=== PATIENT | female | born 1975 | race Caucasian/White ===

== ENCOUNTER 2024-09-06 07:18 | Emergency (ER) | payer OTHER, SELFPAY ==
[2024-09-06] VITALS (20 sets, daily range): BP systolic 97–116; BP diastolic 62–98; PULSE 54–71; RESP 9–20; TEMP 36.4; O2SAT 90–100; BMI 23.8
--- NOTE | 2024-09-06 07:45 | EKG12_ITS ---
Test Reason : CP/PALP Blood Pressure : */* mmHG Vent. Rate : 62 BPM Atrial Rate : 62 BPM P-R Int : 120 ms QRS Dur : 92 ms QT Int : 386 ms P-R-T Axes : -3 4 32 degrees QTcB Int : 391 ms Normal sinus rhythm Normal ECG Confirmed by ALCIDES FRANCIS, MIGUEL ([id number]), non linear editor CAMERON RUSSELL ([id number]) on 09/08/2024 6:18:31 AM Referred By: Confirmed By: MIGUEL MCGRATH MD
--- NOTE | 2024-09-06 07:57 | EX.ED.DYSGE1 ---
HPI History of Present Illness Chief Complaint: Palpitations Detail of Chief Complaint: Rapid heart rate, chest discomfort and lightheadedness Informant: patient Onset/Context/Timing Onset: Today and Hours Context: Sudden Onset Timing: Intermittent (Duration 10 minutes) Quality: Heart rate 208 maximum Location: Cardiovascular Worsened by: Unknown Relieved by: Spontaneous Associated Symptoms Associated Symptoms: Chest discomfort, lightheadedness and palpitations Narrative Narrative: Patient is a 48-year-old woman. She has history of depression, insomnia and hormonal imbalance who presents because of rapid heart rate. Maximum rate was 208. This was detected by her Apple Watch. She denied shortness of breath, diaphoresis, nausea. She states she had similar episode January 2024. She has recently seen Dr. Gonzalez who is a food safety manager through the [facility] for bradycardia. She had blood work on August 26, 2024 which included a free T3, free T4 and TSH. TSH was at the lower end of normal. T3 and T4 were both normal. She states her thyroid is assessed because her mother has history of Shara's disease and Graves' disease. She did have a comprehensive metabolic panel which was normal. CBC which was normal. Presently she has no symptoms. Patient does have a history of GERD. She is on omeprazole. She states if she takes her medication at night and then lies down she has discomfort in her chest. Patient drinks a 10 ounce cup of coffee in the morning. She may have 1 Diet Coke throughout the day. Prior similar symptoms: Yes (January 2024) Recent Illness/Hospitalization: No PFSH PFSH Home Medications ?Medication ?Instructions ?Recorded ?Last Taken ?Type Cetirizine Hcl [Zyrtec] 10 mg PO DAILY 08/11/13 Unknown History amitriptyline 25 mg tablet 25 mg PO QHS 08/11/13 Unknown History fluoxetine 20 mg capsule 40 mg PO DAILY 08/11/13 Unknown History multivitamin with folic acid 400 1 tab PO DAILY 08/11/13 Unknown History mcg tablet (Thera) ezetimibe 10 mg tablet 20 mg PO DAILY 07/12/15 Unknown History oxycodone-acetaminophen 5 mg-325 1 - 2 tab PO Q4H PRN PRN Pain #20 07/12/15 Unknown Rx mg tablet tabs prednisone 20 mg tablet 20 mg PO BIDCM ##10 07/12/15 Unknown Rx metoprolol tartrate 25 mg tablet 25 mg PO UD #30 tabs 09/06/24 Unknown Rx Allergy/AdvReac Type Severity Reaction Status Date / Time aspirin (From Fiorinal) Allergy Rash Verified 11/23/16 09:25 butalbital (From Fiorinal) Allergy Rash Verified 11/23/16 09:25 caffeine (From Fiorinal) Allergy Rash Verified 11/23/16 09:25 Penicillins Allergy Rash Verified 11/23/16 09:25 Sulfa (Sulfonamide Allergy Rash Verified 11/23/16 09:25 Antibiotics) Family History Father Hypertension Mother Graves disease Shara's disease Surgical History History of appendectomy Hx of tonsillectomy History of back surgery H/O: hysterectomy Social History (Updated 09/06/24 @ 08:[address] Aldo Bradshaw MD) Smoking Status: Never smoker alcohol intake: current alcohol intake frequency: a few times a month substance use type: does not use ROS ROS ED Constitutional Constitutional ED: Denies chills, fever(s), subjective, sweats or weight loss Eyes Eyes: Denies blurry vision or change in vision Cardiovascular Cardiovascular: Reports palpitations and racing heartbeat; Denies chest pain or orthopnea Respiratory/Chest Respiratory/Chest: Denies cough, dyspnea, dyspnea on exertion or orthopnea Gastrointestinal Gastrointestinal: Denies abdominal pain, nausea or vomiting Genitourinary Genitourinary ED: Denies dysuria, hematuria or urinary frequency EXAM Physical Exam Const Vital Signs: 09/06/24 07:18 09/06/24 07:54 09/06/24 08:18 Temperature 97.5 F L Temperature Source Temporal Pulse Rate 71 62 Respiratory Rate 16 Respiratory Effort Normal Non-Labored Blood Pressure 116/98 H 105/72 Blood Pressure Mean 104 83 Pulse Ox 100 95 Oxygen Delivery Method Room Air Positive well nourished and well developed General Appearance ED: well developed and NAD; Negative for cyanotic, diaphoretic or pallor HEENT Reports moist mucous membranes HEENT Narrative: Atraumatic and normocephalic. Ears normal. Eyes PERRL and EOMs intact bilaterally General Eye ED: Negative for scleral icterus Resp normal respiratory effort and clear to auscultation bilaterally Cardio regular rate, regular rhythm, S1 normal heart sound, S2 normal heart sound and no murmurs GI normal to inspection, nondistended, normoactive bowel sounds, non-tender and no masses; Negative for hepatosplenomegaly Back/Spine no CVA tenderness Neuro oriented x3 and CN's II-XII intact bilaterally Sensorium / Orientation: alert Psych mental status grossly normal Skin no rashes or lesions noted, no wounds and skin turgor normal General Skin Exam: elasticity normal; Negative for jaundice or pallor MDM MDM MDM Narrative Medical decision making narrative: Since patient had blood work on August 26 these were not repeated. EKG was obtained per nurse protocol. EKG reveals normal sinus rhythm with a rate of 62. Patient is not very active or athletic. She informing that she started seeing cardiology because of bradycardia with heart rate in the 40s. Prior to starting patient on any medication for second episode of symptomatic tachycardia will discuss case with cardiology and arrange for outpatient follow-up and probable EP study. Rhythm Strip Rhythm Strip: Sinus Rhythm Rate: 68 Ectopy: None EKG Initial EKG: Attestation: I personally reviewed and interpreted this EKG as follows: Interpretation: Sinus Rhythm (Normal sinus rhythm rate of 62. EKG is normal. ME interval is under 20 ms Rickers duration 92 ms. QT duration 386 ms. [place] is normal.) Management Discussion w/another healthcare provider: Construction Producer (Spoke with the food safety manager from [facility] who is on-call for Dr. Gonzalez. He requested a 2-week monitor. We do not have capability. He was given patient's name birthdate and will make arrangements for the monitor to be mailed to her. She has had this before. He also requested ) Discharge Plan Triage Chief Complaint: Palpitations ED Provider: Aldo Bradshaw Dx/Rx/DC Orders Clinical Impression: Paroxysmal supraventricular tachycardia, Light-headedness Instructions: ED Understanding Supraventricular Tachycardia (SVT) Prescriptions: New metoprolol tartrate 25 mg tablet 25 mg PO UD Qty: 30 0RF Rx Instructions: Take 1 with onset of rapid heart rate No Action amitriptyline 25 MG tablet 25 mg PO QHS fluoxetine 20 MG capsule 40 mg PO DAILY multivitamin with folic acid [Thera] 1 TABLET tablet 1 tab PO DAILY Cetirizine Hcl [Zyrtec] 10 MG tablet 10 mg PO DAILY ezetimibe 10 MG tablet 20 mg PO DAILY oxycodone-acetaminophen 1 TABLET tablet 1 - 2 tab PO Q4H PRN PRN (Reason: Pain) Qty: 20 0RF prednisone 20 MG tablet 20 mg PO BIDCM Qty: 10 0RF Primary Care Provider: Pete Bowser Referrals: Pete Bowser MD [Primary Care Provider] - Activity Restrictions/Additional Instructions: 1. Contact Dr. Gonzalez's office for follow-up appointment. The food safety manager will mail a monitor to you to be worn for 2 weeks. 2. Take metoprolol tart Pandya if you experience rapid heart rate. When you experience the wreck but heart rate recommend you sitting down so you do not fall and hurt yourself. Print Language: Macedonian Disposition Disposition: Home, Self Care
== END 2024-09-06 09:44 | disposition home or self-care (01) ==
PROVIDERS: Emergency Provider Emergency Medicine; PCP Family Medicine; Visit Provider Emergency Medicine
DX: I47.10 Supraventricular tachycardia, unspecified (principal); R42 Dizziness and giddiness
CPT/HCPCS: 93005; 99284; A4216